=== PATIENT | male | born 1980 | race Caucasian/White ===

== ENCOUNTER 2019-03-20 18:23 | Emergency (ER) | payer MEDICAID ==
[~2019-03-20] VITALS: Ht 188 cm; Wt 99.8 kg
--- NOTE | 2019-03-20 18:25 | NUR ---
JUAREZ, FROM COUNT INCLUDES THE [facility] AZE[facility] DEWEY PT "COMBATIVE AND AGITATED", PLACED IN BED 14 WITH SECURITY, GRAZING EXAMINER AND EMS AT BEDSIDE PATIENT "COULD BE AGITATED" PER EMS.
[2019-03-20] MEDS ORDERED: IV NS 0.9% 1,000 ML BAG IV ONE (18:30)
[2019-03-20] MEDS ORDERED: LORAZEPAM INJ 2 MG/ML VIAL IVP ONE (18:30)
[2019-03-20] MEDS ORDERED: LORAZEPAM INJ 2 MG/ML VIAL ONE (18:44)
[2019-03-20 18:50] LABS: BASOPHILS % (AUTO) 0.4 % (0.0-2.0); EOSINOPHILS % (AUTO) 3.2 % (0.0-6.0); HEMATOCRIT 35 % (39-51); HEMOGLOBIN 11.8 g/dL (13.5-17.5); LYMPHOCYTES # (AUTO) 1.2 /CMM (0.8-4.8); LYMPHOCYTES % (AUTO) 23.7 % (20.0-44.0); MEAN CORPUSCULAR HGB CONC 34 g/dl (31.0-36.0); MEAN CORPUSCULAR VOLUME 99 fL (80-96); MONOCYTES # (AUTO) 0.3 /CMM (0.1-1.30); MONOCYTES % (AUTO) 5.1 % (2.0-12.0); NEUTROPHILS # (AUTO) 3.5 /CMM (1.8-8.9); NEUTROPHILS % (AUTO) 67.6 % (43.0-81.0); PLATELET COUNT (AUTO) 237 /CMM (150-450); RED BLOOD CELL COUNT(AUTO) 3.49 MIL/uL (4.5-6.0); WHITE BLOOD COUNT (AUTO) 5.2 K/uL (4.3-11.0)
[2019-03-20 18:57] LABS: CALCIUM, SERUM 8.8 mg/dL (8.5-10.1); CARBON DIOXIDE 26 mmol/L (21-32); CHLORIDE 101 mmol/L (98-107); CREATININE 1.3 mg/dL (0.6-1.3); GLUCOSE 129 mg/dL (74-106); POTASSIUM 4.1 mmol/L (3.5-5.1); SODIUM SERUM 137 mmol/L (136-145); UREA NITROGEN, BLOOD 9 mg/dL (7-18)
[2019-03-20 19:04] LABS: ALANINE AMINOTRANSFERASE 23 U/L (12-78); ALCOHOL, BLOOD < 3 mg/dL (0-0); ALKALINE PHOSPHATASE 57 U/L (46-116); ASPARTATE AMINOTRANSFERASE 38 U/L (15-37); BILIRUBIN,DIRECT 0.2 mg/dL (0.0-0.2); BILIRUBIN,TOTAL 0.6 mg/dL (0.2-1.0); TOTAL PROTEIN, SERUM 7.5 g/dL (6.4-8.2)
[2019-03-20 19:06] LABS: SALICYLATE 1.5 mg/dL (2.8-20.0)
[2019-03-20 19:07] LABS: ACETAMINOPHEN 0 ug/ml (10-30)
[2019-03-20 19:59] LABS: APPEARANCE,URINE Clear (CLEAR); BILIRUBIN,URINE Negative (NEGATIVE); BLOOD, URINE Negative Ery/uL (NEGATIVE); COLOR,URINE Yellow (YELLOW); KETONES,URINE Negative (NEGATIVE); LEUKOCYTE ESTERASE ,URINE Negative (NEGATIVE); NITRITE, URINE Negative (NEGATIVE); PROTEIN,URINE Negative (NEGATIVE); UGLUCOSE Negative (NEGATIVE); UROBILINOGEN,URINE 0.2 EU/dL (0.2)
--- NOTE | 2019-03-20 20:24 | NUR ---
CARLOS ALBERTO WALKER: [phone]. .
--- NOTE | 2019-03-20 20:48 | NUR ---
SOON PATIENT IS MORE ALERT. CRISIS OPERATIONS SUPPORT MANAGER WILL BE PAGED.
--- NOTE | 2019-03-21 03:03 | NUR ---
PT ALERT AND RESPONSIVE. AMBULATED TO RESTROOM.
--- NOTE | 2019-03-21 03:06 | NUR ---
CHRISTOPHER GUO PAGED FOR EVAL.
[2019-03-21 04:35] VITALS: BP 118/71
== END 2019-03-21 04:35 | disposition home or self-care (01) ==
LOC: ER 18:27
DX: R45.6 Violent behavior (principal); R45.851 Suicidal ideations
CPT/HCPCS: 36415; 80048; 80076; 80305; 80307; 80329; 81001; 85025; 96374; 99284; G0480; J2060; J7030; 81000-TC